=== PATIENT | male | born 1955 | race African-American/Black ===

== ENCOUNTER 2016-11-24 19:21 | Emergency (ER) | payer SELFPAY ==
[~2016-11-24] VITALS: Ht 188 cm; Wt 99.8 kg
[2016-11-24 20:43] LABS: Basophils # (auto) 0.1 uL; Basophils % (auto) 0.6 % (0.0-2.0); Eosinophils # (auto) 0.1 uL; Hematocrit 45.8 % (41.0-53.0); Hemoglobin 14.7 g/dL (13.5-17.5); Lymphocytes # (auto) 1.8 uL; Lymphocytes % (auto) 18.1 % (10.0-50.0); Mean Corpuscular Hemoglobin 28.6 pg (28.0-32.0); Mean Corpuscular Hgb Conc. 32.2 g/dL (32.0-36.0); Mean Platelet Volume 7.5 fL (7.4-10.4); Monocytes # (auto) 0.6 uL; Monocytes % (auto) 5.7 % (0.0-12.0); Neutrophils # (auto) 7.3 uL; Neutrophils % (auto) 74.6 % (37.0-80.0); Platelet Count (auto) 345 10^3/uL (140-450); Red Cell Distribution Width 14.8 % (11.6-16.0); White Blood Cell 9.8 10^3/uL (4.4-10.8)
[2016-11-24] MEDS ORDERED: ONDANSETRON HCL 4 MG/2 ML VIAL IV ONE (21:00)
[2016-11-24] MEDS ORDERED: MORPHINE SULFATE 4 MG/ML SYRG IV ONE (21:00)
[2016-11-24 21:07] LABS: BUN/Creatinine Ratio 13.1; Bilirubin, Total 0.4 mg/dL (0.2-1.0); Calcium 9.5 mg/dL (8.5-10.1); INR 1.06 (0.9-1.15); Magnesium 2.8 mg/dL (1.6-2.6); Partial Thromboplastin Time 20.9 sec (22.64-33.71); Potassium 3.7 mmol/L (3.5-5.1); Prothrombin Time 10.9 sec (9.37-12.3); Total Protein 8.2 g/dL (6.4-8.2)
[2016-11-24 22:09] LABS: Temperature: 22.5 C (20.0-25.0)
[2016-11-24 23:33] VITALS: BP 138/88
== END 2016-11-24 23:47 | disposition home or self-care (01) ==
LOC: ER 19:21
DX: R55 Syncope and collapse (principal); K40.20 Bilateral inguinal hernia, without obstruction or gangrene, not specified as recurrent; K42.9 Umbilical hernia without obstruction or gangrene; I10 Essential (primary) hypertension; I48.91 Unspecified atrial fibrillation; F17.210 Nicotine dependence, cigarettes, uncomplicated; F12.10 Cannabis abuse, uncomplicated
CPT/HCPCS: 36415; 71010; 74176; 80053; 83735; 83880; 84484; 85025; 85379; 85610; 85730; 93005; 94761; 96374; 96375; 99285; J2270; J2405

== ENCOUNTER 2021-10-05 09:10 | Emergency (ER) | payer MEDICARE, OTHER ==
[~2021-10-05] VITALS: Ht 172.7 cm; Wt 95.3 kg
[2021-10-05] MEDS ORDERED: cloNIDine HCL 0.1 MG TAB PO ONE (09:30)
[2021-10-05] MEDS ORDERED: HYDROcodone-ACET 5/325MG TAB PO ONE (10:30)
[2021-10-05 11:26] VITALS: BP 170/102
== END 2021-10-05 11:32 | disposition home or self-care (01) ==
LOC: ER 09:10
DX: M25.552 Pain in left hip (principal); I10 Essential (primary) hypertension; F17.210 Nicotine dependence, cigarettes, uncomplicated
CPT/HCPCS: 73502

== ENCOUNTER 2021-11-25 13:02 | Emergency (ER) | payer MEDICARE ==
[~2021-11-25] VITALS: Ht 172.7 cm; Wt 95.3 kg
[2021-11-25] MEDS ORDERED: LACTATED RINGER'S 1,000 ML IV ONE (14:00)
[2021-11-25 22:05] LABS: Basophils # (auto) 0 10 ^3/uL (0-0.2); Basophils % (auto) 0.5 % (0.0-2.0); Eosinophils # (auto) 0 10 ^3/uL (0-0.8); Hematocrit 45.1 % (41.0-53.0); Hemoglobin 14.9 g/dL (13.5-17.5); Lymphocytes # (auto) 1.2 10 ^3/uL (0.4-5.4); Lymphocytes % (auto) 32.8 % (10.0-50.0); Mean Corpuscular Hemoglobin 29.4 pg (28.0-32.0); Mean Corpuscular Volume 89.1 fL (80.0-100.0); Monocytes # (auto) 0.4 10 ^3/uL (0-1.3); Monocytes % (auto) 10.6 % (0.0-12.0); Neutrophils % (auto) 56.1 % (37.0-80.0); Nucleated Red Blood Cells % 0.2 %; Red Blood Cells 5.06 10^6/uL (4.5-5.90); Red Cell Distribution Width 14.2 % (11.8-14.3); White Blood Cell 3.6 10^3/uL (4.4-10.8)
[2021-11-25 22:17] LABS: Albumin 3.3 g/dL (3.4-5.0); Calcium 8.4 mg/dL (8.5-10.1); Potassium 3.8 mmol/L (3.5-5.1)
[2021-11-25 22:22] LABS: BUN/Creatinine Ratio 11.3; Bilirubin, Total 0.5 mg/dL (0.2-1.0); Total Protein 7.5 g/dL (6.4-8.2)
[2021-11-26] MEDS ORDERED: IOHEXOL 350 MG/ML 100ML IJ ONE (00:23)
[2021-11-26] MEDS ORDERED: methylPREDNISolone SOD SUCC 125 MG/2 ML VL IM ONE (03:30)
[2021-11-26] MEDS ORDERED: ACETAMINOPHEN 500 MG TAB PO ONE (03:30)
[2021-11-26 03:34] VITALS: BP 130/97
[2021-11-26 04:45] LABS: Urine Bacteria NONE SEEN /hpf (None Seen); Urine Blood Negative /uL (Negative); Urine Mucus FEW (None Seen); Urine Specific Gravity > 1.030 (1.001-1.035); Urine WBC <1 /hpf (0 - 3)
[2021-11-26] MEDS ORDERED: FEXOFENADINE HCL 60 MG TAB PO ONE (05:15)
[2021-11-26] MEDS ORDERED: SALI0.6562 (05:35)
[2021-11-26] MEDS ORDERED: DOXY-332 PO (05:35)
== END 2021-11-26 05:56 | disposition home or self-care (01) ==
LOC: ER 13:02
DX: J18.9 Pneumonia, unspecified organism (principal); N17.9 Acute kidney failure, unspecified; R00.0 Tachycardia, unspecified; I10 Essential (primary) hypertension; F17.210 Nicotine dependence, cigarettes, uncomplicated; Z20.822 Contact with and (suspected) exposure to COVID-19
CPT/HCPCS: 36415; 71045; 71275; 80053; 81001; 82728; 84484; 85025; 85379; 85652; 86141; 87426; 96360; 96361; 96372; 99285; J2930; J7030; Q9967

== ENCOUNTER 2022-06-05 09:14 | Emergency (ER) | payer MEDICARE ==
[~2022-06-05 09:14] MED LIST: SALI0.6562
[2022-06-05] MEDS ORDERED: ACET-1158 PO (12:44)
[2022-06-05] MEDS ORDERED: AMOX-277 PO (12:44)
[2022-06-05 13:02] VITALS: BP 145/93
== END 2022-06-05 13:05 | disposition home or self-care (01) ==
LOC: ER 09:14
DX: J01.90 Acute sinusitis, unspecified (principal); B96.89 Other specified bacterial agents as the cause of diseases classified elsewhere; Z20.822 Contact with and (suspected) exposure to COVID-19
CPT/HCPCS: 36415

== ENCOUNTER 2024-07-22 10:54 | Inpatient (IN) | payer MEDICARE ==
[~2024-07-22] VITALS: Ht 172.7 cm; Wt 113.4 kg
[~2024-07-22 10:54] MED LIST changes: +ACET500T58 PO; +AMOX875T4 PO; +BACDST PO; +PHEN-922 PO
[2024-07-22 11:54] LABS: Basophils # (auto) 0.1 10 ^3/uL (0-0.2); Basophils % (auto) 0.9 % (0.0-2.0); Eosinophils # (auto) 0.1 10 ^3/uL (0-0.8); Eosinophils % (auto) 1.1 % (0.0-7.0); Hematocrit 46.1 % (41.0-53.0); Hemoglobin 15.9 g/dL (13.5-17.5); Lymphocytes % (auto) 22.6 % (10.0-50.0); Mean Corpuscular Hemoglobin 31.5 pg (28.0-32.0); Mean Corpuscular Hgb Conc. 34.5 g/dL (32.0-36.0); Mean Corpuscular Volume 91.4 fL (80.0-100.0); Monocytes # (auto) 0.7 10 ^3/uL (0-1.3); Monocytes % (auto) 7.9 % (0.0-12.0); Neutrophils # (auto) 6.1 10 ^3/uL (1.6-8.6); Neutrophils % (auto) 67.5 % (37.0-80.0); Nucleated Red Blood Cells % 0.1 %; Platelet Count (auto) 315 10^3/uL (140-450); Red Blood Cells 5.04 10^6/uL (4.5-5.90); Red Cell Distribution Width 15.6 % (11.8-14.3)
[2024-07-22 12:07] LABS: Alanine Aminotransferase 41 U/L (7-40); Albumin 4.5 g/dL (3.2-4.8); Alkaline Phosphatase 102 U/L (46-116); Anion Gap 8 (5-15); Aspartate Aminotransferase 51 U/L (13-40); BUN/Creatinine Ratio 5.9 (10.0-20.0); Blood Urea Nitrogen 8 mg/dL (9-23); Calcium 9.5 mg/dL (8.7-10.4); Carbon Dioxide 22 mmol/L (20-30); Chloride 106 mmol/L (98-107); Glucose 131 mg/dL (74-106); Potassium 3.8 mmol/L (3.5-5.1); Sodium 136 mmol/L (136-145)
[2024-07-22 12:08] LABS: Bilirubin, Total 0.8 mg/dL (0.2-1.0); Total Protein 8.9 g/dL (5.7-8.2)
[2024-07-22 12:49] LABS: Urine Bacteria None Seen /hpf (None Seen)
[2024-07-22] MEDS: cefTRIAXone 1GM/50ML D5W 50 ML IV ONE (13:21)
[2024-07-22] MEDS: HYDROcodone-ACET 5/325MG TAB PO ONE (13:21)
[2024-07-22] MEDS: SODIUM CHLORIDE 0.9% 1,000 ML IV ONE (13:36)
[2024-07-22 13:47] LABS: Urine Blood 2+ /uL (Negative); Urine Clarity Turbid (Clear); Urine Color Light-Orange (Yellow); Urine Mucus FEW (None Seen); Urine Protein, UAD 1+ (Negative); Urine Specific Gravity 1.026 (1.001-1.035); Urine Urobilinogen Normal (Negative); Urine WBC 409 /hpf (0 - 3); Urine WBC Clumps PRESENT /hpf (None Seen); Urine pH 5.5 (5.0-9.0)
[2024-07-22] MEDS ORDERED: IBUPROFEN 600 MG TAB PO PRN (14:00)
[2024-07-22] MEDS ORDERED: MORPHINE SULFATE INJ 2 MG/ml SYRG IV PRN ×2 (14:00→14:30)
[2024-07-22] MEDS ORDERED: NITROGLYCERIN 0.4 MG SL TAB SL PRN (14:30)
[2024-07-22] MEDS: SODIUM CHLORIDE 0.9% 1,000 ML IV SCH (14:56)
[2024-07-22] MEDS: IOHEXOL 300 MG/ML 100ML BOTTLE IJ ONE (15:29)
[2024-07-22 15:45] LABS: Amphetamine Screen, Urine Neg (NEGATIVE); Barbiturate Scree,Urine Neg (NEGATIVE); Benzodiazephine Screen, Urine Neg (NEGATIVE); Cocaine Screen, Urine Neg (NEGATIVE); Opiate Scree,Urine Neg (NEGATIVE)
[2024-07-22 15:46] LABS: Cannabinoid Screen, Urine Pos (NEGATIVE); Phencyclidine Screen, Urine Neg (NEGATIVE)
[2024-07-22 16:33] VITALS: PULSE 82; RESP 19; O2SAT 96
[2024-07-22 19:30] VITALS: PULSE 91; RESP 20; O2SAT 97
[2024-07-22] MEDS: HYDROcodone-ACET 5/325MG TAB PO PRN (21:41)
[2024-07-22] MEDS: FAMOTIDINE (10MG/ML) 2ML VL IV SCH (21:49)
[2024-07-22 22:55] VITALS: BP 144/88; PULSE 97; RESP 18; TEMP 97.8; O2SAT 97
[2024-07-22 22:57] VITALS: BP 144/88; PULSE 90; PULSE 94; RESP 18; TEMP 97.8; O2SAT 97
[2024-07-23] VITALS (9 sets, daily range): BP systolic 14–162; BP diastolic 80–102; PULSE 85–99; RESP 17–22; TEMP 97.4–98.4; O2SAT 90–99
[2024-07-23] MEDS ORDERED: ATOR10TA52 PO (03:39)
[2024-07-23] MEDS ORDERED: FERR325T24 PO (03:39)
[2024-07-23] MEDS ORDERED: FAMO-12 PO (03:39)
[2024-07-23] MEDS ORDERED: TERA10CA19 PO (03:39)
[2024-07-23] MEDS ORDERED: AMLO1TAB22 PO (03:39)
[2024-07-23] MEDS ORDERED: ASPI-543 PO (03:39)
[2024-07-23 07:17] LABS: Basophils # (auto) 0.1 10 ^3/uL (0-0.2); Basophils % (auto) 0.5 % (0.0-2.0); Eosinophils # (auto) 0.1 10 ^3/uL (0-0.8); Eosinophils % (auto) 0.7 % (0.0-7.0); Hematocrit 41.6 % (41.0-53.0); Hemoglobin 14.4 g/dL (13.5-17.5); Lymphocytes # (auto) 1.6 10 ^3/uL (0.4-5.4); Lymphocytes % (auto) 15.3 % (10.0-50.0); Mean Corpuscular Hemoglobin 31.9 pg (28.0-32.0); Mean Corpuscular Hgb Conc. 34.7 g/dL (32.0-36.0); Mean Corpuscular Volume 91.8 fL (80.0-100.0); Monocytes # (auto) 0.9 10 ^3/uL (0-1.3); Neutrophils # (auto) 7.7 10 ^3/uL (1.6-8.6); Neutrophils % (auto) 74.5 % (37.0-80.0); Platelet Count (auto) 285 10^3/uL (140-450); Red Blood Cells 4.53 10^6/uL (4.5-5.90); Red Cell Distribution Width 15.5 % (11.8-14.3); White Blood Cell 10.3 10^3/uL (4.4-10.8)
[2024-07-23 07:43] LABS: Alanine Aminotransferase 34 U/L (7-40); Albumin 3.9 g/dL (3.2-4.8); Alkaline Phosphatase 93 U/L (46-116); Anion Gap 4 (5-15); Aspartate Aminotransferase 32 U/L (13-40); Bilirubin, Total 0.8 mg/dL (0.2-1.0); Blood Urea Nitrogen 7 mg/dL (9-23); Calcium 9.1 mg/dL (8.7-10.4); Carbon Dioxide 25 mmol/L (20-30); Chloride 107 mmol/L (98-107); Glucose 109 mg/dL (74-106); Potassium 3.9 mmol/L (3.5-5.1); Sodium 136 mmol/L (136-145); Total Protein 7.9 g/dL (5.7-8.2)
[2024-07-23] MEDS: cefTRIAXone 1GM/50ML D5W 50 ML IV SCH (09:00)
[2024-07-23] MEDS ORDERED: fentaNYL CITRATE 100 MCG/2 ML VL ONE (09:04)
[2024-07-23] MEDS ORDERED: GLYCOPYRROLATE 0.2 MG/ML 1ML VIAL ONE (09:04)
[2024-07-23] MEDS ORDERED: KETAMINE 50mg/ML 1ml syringe ONE (09:04)
[2024-07-23] MEDS ORDERED: ROCURONIUM 10MG/ML 10ML VIAL IV ONE (09:04)
[2024-07-23] MEDS ORDERED: PROPOFOL 10 MG/ML 20 ML IV ONE (09:04)
[2024-07-23] MEDS ORDERED: ONDANSETRON HCL 4 MG/2 ML VIAL ONE (09:05)
[2024-07-23] MEDS ORDERED: LIDOCAINE 2% (LOCAL ANESTH.) PF 5ml SDV ONE (09:05)
[2024-07-23] MEDS ORDERED: DexAMETHasone SOD PHOS 10MG/1ML VIAL INJ ONE (09:05)
[2024-07-23] MEDS ORDERED: SUGAMMADEX 200mg/2ml Vial (100MG/ML) IV ONE (09:05)
[2024-07-23] MEDS ORDERED: LIDOCAINE HCL 2% TOP JELLY 5ML TOP ONE (09:05)
[2024-07-23] MEDS ORDERED: ONDANSETRON HCL 4 MG/2 ML VIAL IV PRN (11:45)
[2024-07-23] MEDS ORDERED: hydrALAZINE HCL 20 MG/ML VL IV PRN (11:45)
[2024-07-23] MEDS ORDERED: HYDROmorphone HCL 2 MG/ML VL/or syr IV PRN (11:45)
[2024-07-23] MEDS ORDERED: fentaNYL CITRATE 100 MCG/2 ML VL IV PRN (11:45)
[2024-07-23] MEDS ORDERED: ePHEDrine SULFATE 50 MG/ML AMP IV PRN (11:45)
[2024-07-23] MEDS ORDERED: NALOXONE HCL 0.4 MG/ML VIAL IV PRN (11:45)
[2024-07-23] MEDS ORDERED: FLUMAZENIL 0.1 MG/ML INJ 10ML MDV IV PRN (11:45)
[2024-07-23] MEDS: oxyCODONE HCL 5MG TAB PO PRN (13:29)
[2024-07-23] MEDS: ONDANSETRON HCL 4 MG/2 ML VIAL IV PRN (13:29)
[2024-07-23] MEDS: CIPROFLOXACIN 400MG/200ML 200 ML IV ONE (15:06)
[2024-07-23] MEDS: amLODIPine BESYLATE 5 MG TAB PO ONE (19:32)
[2024-07-23] MEDS: levoFLOXacin 750MG 150 ML IV ONE (19:33)
[2024-07-23] MEDS: TERAZOSIN HCL 5 MG CAP PO SCH (21:11)
[2024-07-24] VITALS (8 sets, daily range): BP systolic 133–157; BP diastolic 87–95; PULSE 74–110; RESP 18–21; TEMP 97.6–98.6; O2SAT 93–96
[2024-07-24] MEDS: hydrALAZINE HCL 20 MG/ML VL IV PRN (05:47)
[2024-07-24 08:34] LABS: Basophils # (auto) 0.1 10 ^3/uL (0-0.2); Basophils % (auto) 0.5 % (0.0-2.0); Eosinophils # (auto) 0 10 ^3/uL (0-0.8); Eosinophils % (auto) 0.1 % (0.0-7.0); Hematocrit 43.3 % (41.0-53.0); Hemoglobin 14.9 g/dL (13.5-17.5); Lymphocytes # (auto) 1.4 10 ^3/uL (0.4-5.4); Lymphocytes % (auto) 10.7 % (10.0-50.0); Mean Corpuscular Hgb Conc. 34.5 g/dL (32.0-36.0); Mean Corpuscular Volume 92.6 fL (80.0-100.0); Monocytes # (auto) 0.9 10 ^3/uL (0-1.3); Monocytes % (auto) 7.2 % (0.0-12.0); Neutrophils # (auto) 10.4 10 ^3/uL (1.6-8.6); Neutrophils % (auto) 81.5 % (37.0-80.0); Platelet Count (auto) 293 10^3/uL (140-450); Red Blood Cells 4.67 10^6/uL (4.5-5.90); Red Cell Distribution Width 15.3 % (11.8-14.3); White Blood Cell 12.8 10^3/uL (4.4-10.8)
[2024-07-24 08:47] LABS: Alanine Aminotransferase 30 U/L (7-40); Alkaline Phosphatase 90 U/L (46-116); Anion Gap 7 (5-15); Aspartate Aminotransferase 25 U/L (13-40); BUN/Creatinine Ratio 8.1 (10.0-20.0); Bilirubin, Total 0.6 mg/dL (0.2-1.0); Blood Urea Nitrogen 10 mg/dL (9-23); Calcium 9.3 mg/dL (8.7-10.4); Carbon Dioxide 23 mmol/L (20-30); Chloride 108 mmol/L (98-107); Glucose 117 mg/dL (74-106); Potassium 3.9 mmol/L (3.5-5.1); Sodium 138 mmol/L (136-145); Total Protein 8.1 g/dL (5.7-8.2)
[2024-07-24] MEDS: levoFLOXacin 750MG 150 ML IV SCH (09:55)
[2024-07-24] MEDS: amLODIPine BESYLATE 5 MG TAB PO SCH (09:56)
[2024-07-25] VITALS (8 sets, daily range): BP systolic 132–153; BP diastolic 83–99; PULSE 84–100; RESP 16–20; TEMP 97.5–99.1; O2SAT 95–99
[2024-07-25 06:01] LABS: Basophils # (auto) 0 10 ^3/uL (0-0.2); Basophils % (auto) 0.3 % (0.0-2.0); Eosinophils # (auto) 0.1 10 ^3/uL (0-0.8); Hematocrit 40.5 % (41.0-53.0); Hemoglobin 13.8 g/dL (13.5-17.5); Lymphocytes # (auto) 1.2 10 ^3/uL (0.4-5.4); Lymphocytes % (auto) 12.9 % (10.0-50.0); Mean Corpuscular Hemoglobin 31.6 pg (28.0-32.0); Mean Corpuscular Volume 92.7 fL (80.0-100.0); Monocytes # (auto) 0.6 10 ^3/uL (0-1.3); Monocytes % (auto) 6.8 % (0.0-12.0); Neutrophils # (auto) 7.3 10 ^3/uL (1.6-8.6); Nucleated Red Blood Cells % 0.1 %; Platelet Count (auto) 271 10^3/uL (140-450); Red Blood Cells 4.37 10^6/uL (4.5-5.90); Red Cell Distribution Width 15.1 % (11.8-14.3); White Blood Cell 9.2 10^3/uL (4.4-10.8)
[2024-07-25 06:09] LABS: Chloride 109 mmol/L (98-107); Sodium 136 mmol/L (136-145)
[2024-07-25 06:10] LABS: Anion Gap 5 (5-15); Calcium 8.6 mg/dL (8.7-10.4); Carbon Dioxide 22 mmol/L (20-30)
[2024-07-25 06:15] LABS: BUN/Creatinine Ratio 10.7 (10.0-20.0); Blood Urea Nitrogen 13 mg/dL (9-23); Glucose 100 mg/dL (74-106)
[2024-07-25] MEDS ORDERED: LEVO500T91 PO (10:35)
[2024-07-25] MEDS: ERTAPENEM SOD INJ 1 GM in SODIUM CHL 0.9% 50 ML IV ONE (14:08)
[2024-07-25] MEDS: FAMOTIDINE 20 MG TAB PO SCH (21:54)
[2024-07-26] VITALS (8 sets, daily range): BP systolic 128–149; BP diastolic 64–89; PULSE 82–97; RESP 17–20; TEMP 98.2–99.3; O2SAT 90–98
[2024-07-26 08:58] LABS: Basophils # (auto) 0 10 ^3/uL (0-0.2); Basophils % (auto) 0.3 % (0.0-2.0); Eosinophils # (auto) 0.1 10 ^3/uL (0-0.8); Eosinophils % (auto) 1.7 % (0.0-7.0); Hematocrit 39.7 % (41.0-53.0); Hemoglobin 13.5 g/dL (13.5-17.5); Lymphocytes # (auto) 1.3 10 ^3/uL (0.4-5.4); Lymphocytes % (auto) 14.2 % (10.0-50.0); Mean Corpuscular Hemoglobin 31.5 pg (28.0-32.0); Mean Corpuscular Volume 92.5 fL (80.0-100.0); Monocytes % (auto) 11.7 % (0.0-12.0); Neutrophils # (auto) 6.4 10 ^3/uL (1.6-8.6); Neutrophils % (auto) 72.1 % (37.0-80.0); Nucleated Red Blood Cells % 0.2 %; Platelet Count (auto) 274 10^3/uL (140-450); Red Blood Cells 4.29 10^6/uL (4.5-5.90); Red Cell Distribution Width 15.2 % (11.8-14.3); White Blood Cell 8.8 10^3/uL (4.4-10.8)
[2024-07-26 09:25] LABS: Alanine Aminotransferase 48 U/L (7-40); Albumin 3.6 g/dL (3.2-4.8); Alkaline Phosphatase 74 U/L (46-116); Anion Gap 5 (5-15); Aspartate Aminotransferase 63 U/L (13-40); BUN/Creatinine Ratio 8.8 (10.0-20.0); Blood Urea Nitrogen 10 mg/dL (9-23); Calcium 8.5 mg/dL (8.7-10.4); Carbon Dioxide 22 mmol/L (20-30); Chloride 108 mmol/L (98-107); Glucose 97 mg/dL (74-106); Potassium 3.8 mmol/L (3.5-5.1); Sodium 135 mmol/L (136-145)
[2024-07-26 09:26] LABS: Bilirubin, Total 0.5 mg/dL (0.2-1.0)
[2024-07-26] MEDS: ERTAPENEM SOD INJ 1 GM in SODIUM CHL 0.9% 50 ML IV SCH (09:36)
[2024-07-27] VITALS (7 sets, daily range): BP systolic 136–156; BP diastolic 83–97; PULSE 71–99; RESP 14–20; TEMP 97.4–98.9; O2SAT 95–100
[2024-07-27 08:41] LABS: Basophils # (auto) 0 10 ^3/uL (0-0.2); Basophils % (auto) 0.5 % (0.0-2.0); Eosinophils # (auto) 0.1 10 ^3/uL (0-0.8); Eosinophils % (auto) 1.8 % (0.0-7.0); Hematocrit 41.7 % (41.0-53.0); Hemoglobin 14.2 g/dL (13.5-17.5); Lymphocytes # (auto) 1.5 10 ^3/uL (0.4-5.4); Lymphocytes % (auto) 18.7 % (10.0-50.0); Mean Corpuscular Hemoglobin 31.6 pg (28.0-32.0); Mean Corpuscular Hgb Conc. 34.1 g/dL (32.0-36.0); Mean Corpuscular Volume 92.7 fL (80.0-100.0); Monocytes # (auto) 0.9 10 ^3/uL (0-1.3); Monocytes % (auto) 10.8 % (0.0-12.0); Neutrophils # (auto) 5.4 10 ^3/uL (1.6-8.6); Neutrophils % (auto) 68.2 % (37.0-80.0); Nucleated Red Blood Cells % 0.1 %; Platelet Count (auto) 301 10^3/uL (140-450); Red Cell Distribution Width 15.1 % (11.8-14.3); White Blood Cell 7.9 10^3/uL (4.4-10.8)
[2024-07-27 09:12] LABS: Alanine Aminotransferase 61 U/L (7-40); Albumin 3.9 g/dL (3.2-4.8); Alkaline Phosphatase 83 U/L (46-116); Anion Gap 8 (5-15); Aspartate Aminotransferase 79 U/L (13-40); BUN/Creatinine Ratio 9.1 (10.0-20.0); Blood Urea Nitrogen 10 mg/dL (9-23); Calcium 8.9 mg/dL (8.7-10.4); Carbon Dioxide 19 mmol/L (20-30); Chloride 107 mmol/L (98-107); Glucose 105 mg/dL (74-106); Potassium 3.7 mmol/L (3.5-5.1); Sodium 134 mmol/L (136-145)
[2024-07-27 09:13] LABS: Bilirubin, Total 0.5 mg/dL (0.2-1.0); Total Protein 7.6 g/dL (5.7-8.2)
[2024-07-27] MEDS ORDERED: BACDST PO (14:00)
[2024-07-27] MEDS: FAMOTIDINE 20 MG TAB PO ONE (19:02)
== END 2024-07-27 20:06 | disposition home health service (06) | DRG 713 ==
LOC: ER 10:54 → TELE 14:24 → WEST WING 14:25 → TELE-WESTW 22:25 → WEST WING 07-23 16:58
PROVIDERS: ADMIT Internal Medicine; ATTEND Emergency Medicine
PROC: 0VB08ZZ Excision of Prostate, Via Natural or Artificial Opening Endoscopic (ICD-10-PCS; principal; 2024-07-23 10:27)
PROC: 0V908ZZ Drainage of Prostate, Via Natural or Artificial Opening Endoscopic (ICD-10-PCS; 2024-07-23 10:27)
PROC: 05HA33Z Insertion of Infusion Device into Left Brachial Vein, Percutaneous Approach (ICD-10-PCS; 2024-07-25)
PROC: B54NZZA Ultrasonography of Left Upper Extremity Veins, Guidance (ICD-10-PCS; 2024-07-25)
DX: N41.2 Abscess of prostate (principal); N30.00 Acute cystitis without hematuria; I10 Essential (primary) hypertension; G89.29 Other chronic pain; E78.00 Pure hypercholesterolemia, unspecified; B96.20 Unspecified Escherichia coli [E. coli] as the cause of diseases classified elsewhere; F12.10 Cannabis abuse, uncomplicated; E66.9 Obesity, unspecified; R74.01 Elevation of levels of liver transaminase levels; D64.9 Anemia, unspecified; Z79.82 Long term (current) use of aspirin; Z79.899 Other long term (current) drug therapy; Z68.38 Body mass index [BMI] 38.0-38.9, adult; N40.1 Benign prostatic hyperplasia with lower urinary tract symptoms; R39.15 Urgency of urination; R35.0 Frequency of micturition
CPT/HCPCS: 36415; 74176; 74177; 80048; 80053; 80307; 81001; 84484; 85025; 87070; 87075; 87077; 87186; 87205; 93005; 97110; 97163; 97530; G0378; J1100; J1335; J1956; J2001; J2405; J2704; J3490

== ENCOUNTER → 2024-08-08 | Outpatient (CLI) | payer MEDICARE ==
[~2024-08-08] MED LIST changes: +AMLO1TAB22 PO; +ASPI-543 PO; +ATOR10TA52 PO; +FAMO-12 PO; +FERR325T24 PO; +TERA10CA19 PO
== END | disposition home or self-care (01) ==
LOC: LAB 12:01
PROVIDERS: ATTEND Urology
DX: N40.1 Benign prostatic hyperplasia with lower urinary tract symptoms (principal)
CPT/HCPCS: 84153

== ENCOUNTER → 2025-01-28 | Outpatient (CLI) | payer MEDICARE ==
[2025-01-28 08:15] LABS: Basophils # (auto) 0.1 10 ^3/uL (0-0.2); Basophils % (auto) 1.2 % (0.0-2.0); Eosinophils # (auto) 0.1 10 ^3/uL (0-0.8); Eosinophils % (auto) 2.7 % (0.0-7.0); Hematocrit 46.1 % (41.0-53.0); Hemoglobin 15.2 g/dL (13.5-17.5); Lymphocytes # (auto) 2.7 10 ^3/uL (0.4-5.4); Lymphocytes % (auto) 49.7 % (10.0-50.0); Mean Corpuscular Hemoglobin 30.4 pg (28.0-32.0); Monocytes # (auto) 0.4 10 ^3/uL (0-1.3); Monocytes % (auto) 7.7 % (0.0-12.0); Neutrophils # (auto) 2.1 10 ^3/uL (1.6-8.6); Neutrophils % (auto) 38.7 % (37.0-80.0); Nucleated Red Blood Cells % 0.1 %; Platelet Count (auto) 250 10^3/uL (140-450); Red Blood Cells 5.01 10^6/uL (4.5-5.90); Red Cell Distribution Width 15.7 % (11.8-14.3); White Blood Cell 5.4 10^3/uL (4.4-10.8)
[2025-01-28 08:28] LABS: INR 1.05 (0.9-1.15); Prothrombin Time 11.1 sec (9.3-11.8)
[2025-01-28 08:46] LABS: Albumin 4.4 g/dL (3.2-4.8); Alkaline Phosphatase 82 U/L (46-116); Anion Gap 9 (5-15); Bilirubin, Total 0.4 mg/dL (0.2-1.0); Calcium 9.5 mg/dL (8.7-10.4); Carbon Dioxide 24 mmol/L (20-31); Chloride 107 mmol/L (98-107); Potassium 3.8 mmol/L (3.5-5.1); Sodium 140 mmol/L (136-145); Total Protein 7.9 g/dL (5.7-8.2)
[2025-01-28 08:48] LABS: Alanine Aminotransferase 54 U/L (7-40); Aspartate Aminotransferase 41 U/L (13-40); Blood Urea Nitrogen < 5 mg/dL (9-23); Glucose 117 mg/dL (74-106)
== END | disposition home or self-care (01) ==
LOC: LAB 07:53
PROVIDERS: ATTEND Internal Medicine
DX: I10 Essential (primary) hypertension (principal); K76.0 Fatty (change of) liver, not elsewhere classified
CPT/HCPCS: 36415; 80053; 85025; 85610; 86787

== ENCOUNTER 2025-08-20 14:07 | Outpatient (CLI) | payer MEDICARE ==
[2025-08-20 14:34] LABS: Hematocrit 40.7 % (41.0-53.0); Hemoglobin 13.8 g/dL (13.5-17.5); Mean Corpuscular Hemoglobin 31.7 pg (28.0-32.0); Mean Corpuscular Volume 93.6 fL (80.0-100.0); Nucleated Red Blood Cells % 0.1 %
[2025-08-20 14:40] LABS: Urine Protein, UAD 1+ (Negative)
[2025-08-20 14:48] LABS: Triglycerides 102 mg/dL (< 150)
[2025-08-20 14:49] LABS: Albumin 4.2 g/dL (3.2-4.8); Alkaline Phosphatase 85 U/L (46-116); Anion Gap 8 (5-15); BUN/Creatinine Ratio 4.2 (10.0-20.0); Bilirubin, Total 0.7 mg/dL (0.2-1.0); Calcium 9.0 mg/dL (8.7-10.4); Carbon Dioxide 25 mmol/L (20-31); Cholesterol 112 mg/dL (< 200); Glucose 91 mg/dL (74-106); Magnesium 2.2 mg/dL (1.6-2.6); Potassium 3.9 mmol/L (3.5-5.1); Sodium 142 mmol/L (136-145); Total Protein 7.7 g/dL (5.7-8.2)
[2025-08-20 14:50] LABS: Alanine Aminotransferase 70 U/L (7-40); Blood Urea Nitrogen 6 mg/dL (9-23); Chloride 109 mmol/L (98-107); HDL Cholesterol 63 mg/dL (40-59)
[2025-08-20 14:57] LABS: Free T4 (Free Thyroxine) 0.88 ng/dL (0.89-1.76)
== END 2025-08-21 17:00 | disposition home or self-care (01) ==
LOC: LAB 14:07
PROVIDERS: ATTEND Internal Medicine
DX: I10 Essential (primary) hypertension (principal); N40.0 Benign prostatic hyperplasia without lower urinary tract symptoms; R73.01 Impaired fasting glucose; R25.2 Cramp and spasm
CPT/HCPCS: 36415; 80053; 80061; 81001; 82607; 83036; 83735; 84439; 84443; 85025; 85652

== ENCOUNTER → 2025-08-22 | Outpatient (CLI) | payer MEDICARE | END | disposition home or self-care (01) | LOC: LAB 12:21 | PROVIDERS: ATTEND Internal Medicine | DX: N40.0 Benign prostatic hyperplasia without lower urinary tract symptoms (principal); M79.2 Neuralgia and neuritis, unspecified | CPT/HCPCS: 84153 ==